=== PATIENT | female | born 1985 | race Caucasian/White ===

== ENCOUNTER → 2021-02-22 | Outpatient (CLI) | payer OTHER | END | disposition home or self-care (01) | LOC: LABPAT 08:18 | PROVIDERS: ATTEND Obstetrics & Gynecology | DX: Z53.9 Procedure and treatment not carried out, unspecified reason (principal) ==

== ENCOUNTER 2021-02-23 06:00 | Day surgery (SDC) | payer OTHER ==
[2021-02-22 10:52] VITALS: BMI 29.2
--- NOTE | 2021-02-22 17:33 | P.HPOB ---
History of Present Illness H&P Date: 02/22/21 Chief Complaint: Missed 6 weeks This patient is a pleasant 35-year-old 2 para 1 female estimated gestational age by last menstrual period excellently 10 weeks however 6 weeks by serial ultrasounds. Patient's had 3 ultrasounds of shown a 6 week size intraute rine without cardiac activity. Patient and I discussed management including expected versus intervention with suction D&C and she wishes to proceed with a D&C at this time. Review of Systems Genitourinary: Reports Past Medical History Additional Past Medical History / Comment(s): History of gestational hypertension History of Any Multi-Drug Resistant Organisms: None Reported Past Surgical History: Adenoidectomy, Section Additional Past Surgical History / Comment(s): [place] teeth Past Anesthesia/Blood Transfusion Reactions: No Reported Reaction Past Psychological History: No Psychological Hx Reported Smoking Status: Never smoker Past Alcohol Use History: None Reported Past Drug Use History: None Reported - Past Family History Mother Family Medical History: Cancer Additional Family Medical History / Comment(s): Melanoma & Thyroid cancer. Medications and Allergies Home Medications Medication Instructions Recorded Confirmed Type Pnv No.95/Ferrous Fum/Folic AC 1 each PO DAILY 02/22/21 02/22/21 History [ Multivitamin Tablet] Allergies Allergy/AdvReac Type Severity Reaction Status Date / Time No Known Allergies Allergy Verified 02/22/21 10:26 Exam Intake and Output 02/22/21 02/22/21 02/22/21 06:59 14:59 22:59 Other: Weight 82.1 kg - OBG Physical Exam Abdomen: bowel sounds normal, no diffuse tenderness, no bruit present, no guarding noted, no hepatomegaly, no splenomegaly, no mass Vagina: normal moisture, no discharge Cervix: no lesion, no discharge Uterus: normal size, enlarged (6 weeks' size), normal contour Results Serial ultrasound shows an intrauterine gestational sac with yolk sacs but no cardiac activity. Blood type is Rh+ Assessment and Plan Assessment: This is a pleasant 35-year-old 2 para 1 female estimated gestational age 6 weeks with missed who presents for suction D&C for treatment. Patient I have discussed the surgery and risks including risks of infection, bleeding, possible uterine perforation. All the patient's questions are answered and a written consent is obtained. (1) Missed Status: Acute Code(s): O02.1 - MISSED SNOMED Code(s): 97983230
[~2021-02-23 06:00] MED LIST: DEXAMETHASONE SOD PHOSPHATE 4 MG/ML 1 ML VIAL IV ONE; LIDOCAINE 1% (10MG/ML) FOR IV START INTRADERMA PRN; MIDAZOLAM 2 MG/2 ML VIAL IV PRN; ONDANSETRON 4 MG/2 ML VIAL IVP ONE; Pre Op ABX Message 1 EACH MISC MISCELLANE ONE
[2021-02-23] MEDS: LACTATED RINGERS 1,000 ML IV SCH ×2 (06:30→06:43)
[2021-02-23] MEDS ORDERED: LIDOCAINE 1% INJ 10MG/ML (20 ML MDV) ONE (06:40)
[2021-02-23] MEDS ORDERED: fentaNYL (PF) 50 MCG/ML 2 ML AMP ONE (06:40)
[2021-02-23] MEDS ORDERED: PROPOFOL 10 MG/ML 20 ML VIAL IV ONE (06:40)
[2021-02-23] MEDS ORDERED: KETOROLAC 15 MG/ML 1 ML VIAL ONE (06:40)
[2021-02-23] MEDS ORDERED: MIDAZOLAM 2 MG/2 ML VIAL ONE (06:40)
[2021-02-23] MEDS ORDERED: HYDROmorphone 0.5 MG/0.5 ML SYRINGE IVP PRN (07:00)
--- NOTE | 2021-02-23 07:18 | P.OP ---
Date of Procedure: 02/23/21 Preoperative Diagnosis: Missed 6 weeks Postoperative Diagnosis: Same Procedure(s) Performed: Suction D&C Anesthesia: other (LMA) Surgeon: Parker Cruz Estimated Blood Loss (ml): 75 Urine output (ml): 25 Pathology: other (Uterine curettings) Condition: stable Disposition: PACU Indications for Procedure: Please see dictated H&P for intimate details of this patient's admission. Brief summary this is a pleasant 35-year-old estimated gestational age 9 weeks by dates 6 weeks by ultrasound with serial ultrasound showing a nonviable consistent with a missed . Patient and I discussed options for treatment including expectant versus surgical management she elects to proceed with suction D&C for treatment. Patient does understand the surgery and risks and risks of infection, bleeding, possible uterine perforation. All the patient's questions are answered written consent obtained. Operative Findings: Patient had uterine contents consistent with products of conception Description of Procedure: This patient is taken to the operating room where she is laid in the supine position. She subsequently goes under general anesthesia without incident. With an adequate level of anesthesia was placed in dorsal lithotomy position. She has a vaginal perineal prep and drape. Examination under anesthesia shows a retroverted uterus slightly enlarged. The bladder is drained at this time for 25 mL of clear urine. Weighted speculum was placed in the posterior vagina and the anterior lip of the cervix was grabbed with an Allis clamp. I then gently dilate the cervix to allow a 8 curved suction curette easily into the uterine cavity. Suction is applied and a generous amount of tissue was removed. Multiple passes are made until no further tissue was noted. A gentle but thorough 4 quadrant curettage is then done again and no further tissue was noted. This time the bleeding subsides. The procedure is ended. The Allis clamp was removed the weighted speculum removed. All counts are correct 3. There are no complications. Patient is taken to the recovery room in satisfactory condition.
[2021-02-23 07:21] VITALS: TEMP 98.3
[2021-02-23 08:03] VITALS: RESP 16
[2021-02-23 08:29] VITALS: BP 122/73; PULSE 77
== END 2021-02-23 08:51 | disposition home or self-care (01) ==
LOC: OR 06:00
PROVIDERS: ATTEND Obstetrics & Gynecology
DX: O02.1 Missed abortion (principal); Z90.89 Acquired absence of other organs; Z98.891 History of uterine scar from previous surgery; Z80.8 Family history of malignant neoplasm of other organs or systems; F41.9 Anxiety disorder, unspecified; Z79.899 Other long term (current) drug therapy
CPT/HCPCS: 86900; 86901; 88305; 86850; 36415; 59820; J2250; J1100; J2405; J2001; J3010; J1885; J2704; J1170